=== PATIENT | female | born 1960 | race Caucasian/White ===

== ENCOUNTER 2023-09-29 20:34 | Emergency (ER) | payer OTHER, SELFPAY ==
[2023-09-29] MEDS ORDERED: Ondansetron PF 4 MG/2 ML Vial ONE (21:40)
[2023-09-29 21:48] LABS: #Monocytes 0.3 10x3/uL (0.0-1.1); %Basophils 0.2 % (0.0-2.0); %Lymphocytes 6.2 % (18.0-47.0); %Monocytes 2.6 % (0.0-10.0); %Neutrophils 90.5 % (40.0-75.0); Hematocrit 45.2 % (34.9-44.5); Hemoglobin 15.2 g/dL (12.0-15.5); Mean Corpuscular HGB CONC 33.6 g/dL (32.0-36.0); Mean Corpuscular Hemoglobin 28.8 pg (27.0-33.0); Mean Corpuscular Volume 85.6 fl (81.6-98.3); Mean Platelet Volume 9.8 fl (7.4-10.4); Platelet Count 195 10x3/uL (150-450); RBC Distribution Width 13.3 % (11.5-14.5); Red Blood Cell (RBC) Count 5.28 10x6/uL (3.90-5.03); White Blood Cell (WBC) Count 12.2 10x3/uL (3.5-10.5)
[2023-09-29 22:06] LABS: ALT (SGPT) 10 U/L (8-55); AST (SGOT) 16 U/L (5-34); Albumin 4.9 g/dL (3.4-4.8); Alkaline Phosphatase 95 U/L (40-110); Anion Gap 15 mmol/L (10-20); BUN (Urea Nitrogen) 14 mg/dL (9.8-20.1); Bilirubin, Total 0.6 mg/dL (0.2-1.2); Calc. Creatinine Clearance 0 mL/min (70-130); Calcium 9.5 mg/dL (7.8-10.44); Carbon Dioxide 21 mmol/L (23-31); Chloride 105 mmol/L (98-107); Estimated GFR 83; Globulin 2.4 g/dL (2.4-3.5); Glucose 166 mg/dL (80-115); Lipase 11 U/L (8-78); Potassium 3.4 mmol/L (3.5-5.1); Protein, Total 7.3 g/dL (5.8-8.1); Sodium 138 mmol/L (136-145)
[2023-09-29 22:13] LABS: Troponin I Less than 0.010 ng/mL (< 0.028)
[2023-09-29 23:20] LABS: Bilirubin Neg (Negative); Blood, Urine 150 (Negative); Clarity Clear (Clear); Glucose, Urine (Dipstick) 100 mg/dL (Negative); Ketone, Urine 15 mg/dL (Negative); Leukocyte Negative (Negative); Nitrite Negative (Negative); Protein, Urine (Dipstick) 500 mg/dl (Neg-Trace); Specific Gravity, Urine 1.025 (1.005-1.030); Urobilinogen Normal mg/dL (Less than 2)
[2023-09-29 23:31] LABS: Bacteria/HPF None Seen HPF (None Seen); CAUTI Indications for Culture Pelvic or flank pain; RBC/HPF 0-3 HPF (0-3); Urine Culture Reflex No No; WBC/HPF 0-3 HPF (0-3)
[2023-09-30] MEDS ORDERED: Diphenoxylate HCl/Atropine Tablet ONE (00:21)
[2023-09-30] MEDS ORDERED: Morphine 4 MG/ML VIAL ONE (01:04)
== END 2023-09-30 02:17 | disposition home or self-care (01) ==
LOC: CSHERS 20:34
DX: A09 Infectious gastroenteritis and colitis, unspecified (principal); E27.9 Disorder of adrenal gland, unspecified; R80.9 Proteinuria, unspecified; I10 Essential (primary) hypertension; F17.210 Nicotine dependence, cigarettes, uncomplicated; Z79.82 Long term (current) use of aspirin; Z79.899 Other long term (current) drug therapy
CPT/HCPCS: 36415; 74177; 80053; 81001; 83605; 83690; 83880; 84484; 85025; 87040; 93005; 93010; 96361; 96374; 96375; J2270; J2405